=== PATIENT | female | born 1955 | race Caucasian/White ===

== ENCOUNTER 2020-05-24 16:40 | Emergency (ER) | payer MEDICARE, BC ==
[~2020-05-24] VITALS: Ht 167.6 cm; Wt 94.1 kg
[~2020-05-24 16:40] MED LIST: BENTYL20 MG PO; DIOVAN160 MG PO; MEDROXYPROGEST2.5 MG PO; METOPROLOL SUCC25 MG PO; PANTOPRAZOLE SO40 MG PO; PREMARIN0.3 MG PO; ZOFRAN8 MG PO
[2020-05-24] MEDS ORDERED: ACETAMINOPHEN 325 MG TAB PO STA (17:05)
[2020-05-24] MEDS ORDERED: ACETAMINOPHEN 325 MG TAB ONE (17:27)
[2020-05-24 18:29] VITALS: BP 164/90
== END 2020-05-24 18:24 | disposition home or self-care (01) ==
LOC: FSED 17:04
DX: S93.401A Sprain of unspecified ligament of right ankle, initial encounter (principal); S83.92XA Sprain of unspecified site of left knee, initial encounter; X50.1XXA Overexertion from prolonged static or awkward postures, initial encounter; Y93.01 Activity, walking, marching and hiking; I10 Essential (primary) hypertension; Z87.19 Personal history of other diseases of the digestive system
CPT/HCPCS: 99283